=== PATIENT | male | born 1955 | race Caucasian/White ===

== ENCOUNTER → 2023-11-05 | Outpatient (CLI) | payer OTHER, SELFPAY ==
--- NOTE | 2023-11-05 10:30 | PET_ITS ---
EXAMINATION: Ga 68 PSMA PET-CT ? INDICATIONS: 68-year-old male with a history of primary prostate carcinoma, presenting for restaging. ? COMPARISON EXAMINATION: None available ? INDEX LESION SIZE PROMISE SCORE SUV INTERPRETATION Axial skeletal structures, left hemicalvarium ? 3 61.94 Fulfills quantitative criteria for viable neoplasm ? TECHNIQUE: Following the intravenous administration of 9.85 mCi of Ga 68 PSMA via the left antecubital fossa, multiplanar image acquisitions of the head, neck, chest, abdomen and pelvis to the level of the midthigh, obtained at 73 minutes post tracer distribution reveal: ? The examination was interpreted using the EANM (Jazzy et al., Journal of Nuclear Medicine Molecular Imaging 44:1622, 2017) and PROMISE (Remberto et al., Journal of Nuclear Medicine 59:469, 2018) interpretive criteria. ? HEIGHT:?? 71 inches WEIGHT:?? 255 pounds ? PSMA expression score PROMISE criteria: High (3): SUV > parotid-salivary gland, intermediate (2): SUV > liver, low (1): > blood pool, < liver, (0): < blood pool. ? SUV reference values: Parotid glands 31.23. Normal liver parenchyma 8.7. Blood pool 2.8. ? FINDINGS: ? HEAD/NECK:? Symmetric radiopharmaceutical concentration is defined in the bilateral parotid and submandibular glands. Physiologic tracer uptake is noted in the nasal cavity. ? There is no evidence of abnormal increased tracer uptake within the context of the cranial vault. ? CHEST:? There is no quantitative scintigraphic evidence of abnormal increased radiopharmaceutical concentration within the context of the bilateral hemithorax pulmonary parenchyma, right and left hemithorax at the pleural interface, mediastinal structures, and left-right thoracic perihilum. ? CT of the chest demonstrates the following anatomic characteristics: Atherosclerotic calcification is defined in the thoracic aorta without evidence of dilatation, aneurysm formation. Coronary artery calcification is observed. Right and left axillary soft tissue densities demonstrate no evidence of increased tracer uptake. Facilitated radiopharmaceutical concentration is defined in the bilateral anterior chest wall-breast tissue generating a calculated standard uptake value of 2.8. The PROMISE Score is 1. ? ABDOMEN/PELVIS:? Uniform, homogeneous radiopharmaceutical concentration is defined in the hepatic and splenic parenchyma, visualization of the bilateral renal units, urinary bladder, and visualized intestinal tract. ? CT of the abdomen and pelvis is remarkable for the following: A fat containing left inguinal hernia is noted. Right and left inguinal soft tissue densities demonstrate no evidence of increased tracer uptake. The prostate gland appears surgically absent. Cyst formation is defined in the right hemipelvis. Atherosclerotic calcification is defined in the abdominal aorta without evidence of dilatation, aneurysm formation. Abdominal-pelvic arterial calcification is observed. Postsurgical change is defined in the right lower anterior hemipelvis. ? SKELETAL:? Multifocal increased radiotracer distribution is defined in the axial skeletal structures and paramedian left parietal skull. The calculated standard uptake value is 61.94. The PROMISE Score is 3. ? PET/PET/CT Tumor Base -Thigh Subs IMPRESSION: 1. ABNORMAL EXAMINATION INDICATIVE OF MALIGNANT-VIABLE NEOPLASM. 2. Increased tracer uptake noted in the axial skeleton and left paramedian parietal skull fulfills quantitative criteria for viable neoplastic transformation.? (Eijosé manuel et al., Journal of Nuclear Medicine 59:469, 2018). Electronic Signature Angel Pavon D.O. Accurate Quantification of SUVs and standardized PROMISE scores for this report are calculated using the exclusive [employer] Technology, ([place] Patent No. [id number] [id number] [phone] [place] patent [phone] ). Standardization and correction of the FDG SUV metric exclusively available with [employer] intellectual property, allow for vendor non-specific objective quantitative sequential FDG PET-CT comparison and otherwise unobtainable optimization of the sensitivity and specificity of the examination. [email or web address] Electronically Signed: Angel Pavon DO at 7:50 EDT ,
== END | disposition home or self-care (01) ==
DX: C61 Malignant neoplasm of prostate (principal); R97.21 Rising PSA following treatment for malignant neoplasm of prostate
CPT/HCPCS: 78815; A9595